=== PATIENT | female | born 1955 | race Two or more races ===

== ENCOUNTER 2023-08-31 12:30 | Inpatient (IN) | payer OTHER ==
[~2023-08-31] VITALS: Ht 175.3 cm; Wt 104.3 kg
[2023-08-31] MEDS ORDERED: INDAPAMIDE2.5 MG (14:59)
[2023-08-31] MEDS ORDERED: TIROSINT100 MCG (15:00)
[2023-08-31] MEDS ORDERED: AVAPRO75 MG (15:00)
[2023-08-31] MEDS ORDERED: ZETIA10 MG (15:01)
[2023-09-12] MEDS ORDERED: AZATHIOPRINE50 MG (14:23)
[2023-09-12] MEDS ORDERED: LISINOPRIL10 MG (14:23)
[2023-09-12] MEDS ORDERED: SIMVASTATIN20 MG (14:23)
[2023-09-12] MEDS ORDERED: OMEPRAZOLE20 MG (14:23)
[2023-09-12] MEDS ORDERED: VITAMIN D3250 MCG (14:23)
[2023-09-12] MEDS ORDERED: ROSUVASTATIN CA20 MG (14:23)
[2023-09-12] MEDS ORDERED: CEFAZOLIN SODIUM 1,000 MG VIAL ONE (14:42)
[2023-09-12] MEDS ORDERED: KETOROLAC TROMETHAMINE 60 MG VIAL IM ONE ×2 (17:42→18:00)
[2023-09-12] MEDS ORDERED: LIDOCAINE HCL 1%/Epi 20ML VIAL IJ ONE ×2 (17:42→18:00)
[2023-09-12] MEDS ORDERED: METHYLPREDNISOLONE ACETATE 80 MG/ML VIAL ONE (17:42)
[2023-09-12] MEDS ORDERED: POVIDONE-IODINE 3 EA MED..SWAB TOP ONE (17:42)
[2023-09-12] MEDS ORDERED: BUPIVACAINE HCL/PF 0.5% 30ML ML ONE (17:42)
[2023-09-12] MEDS ORDERED: TRANEXAMIC ACID 100MG/1ML (1000MG) AMPUL IV ONE ×3 (17:46→18:00)
[2023-09-12] MEDS ORDERED: CEFAZOLIN SODIUM 1,000 MG VIAL IV ONE (18:00)
[2023-09-12] MEDS ORDERED: METHYLPREDNISOLONE ACETATE 80 MG/ML VIAL IJ ONE (18:00)
[2023-09-12] MEDS ORDERED: BUPIVACAINE HCL 30 ML VIAL IV ONE (18:00)
[2023-09-12] MEDS ORDERED: ONDANSETRON HCL 2 MG/ML VIAL IV PRN (20:15)
[2023-09-12] MEDS ORDERED: SODIUM CHLORIDE 0.45 % 1,000 ML IV SCH (20:15)
[2023-09-12] MEDS ORDERED: MORPHINE SULFATE 2 MG/ML CARTRIDGE IV ONE (20:15)
[2023-09-12] MEDS ORDERED: MORPHINE SULFATE 4 MG/ML CARTRIDGE IV PRN (20:15)
[2023-09-12] MEDS ORDERED: GENTAMICIN SULFATE 40 MG/ML VIAL IV SCH (21:00)
[2023-09-12 23:08] LABS: HEMATOCRIT 35.5 % (36.0-45.00); HEMOGLOBIN 12.1 g/dL (12.0-15.00); RED BLOOD COUNT 3.92 M/uL (4.00-6.00)
[2023-09-13] MEDS ORDERED: CEFAZOLIN SODIUM 1,000 MG VIAL IV SCH
[2023-09-13] MEDS ORDERED: LEVOTHYROXINE SODIUM 100 MCG TABLET PO SCH (06:00)
[2023-09-13 06:48] LABS: HEMATOCRIT 32.7 % (36.0-45.00); HEMOGLOBIN 11.2 g/dL (12.0-15.00); MEAN CELL VOLUME 90.2 fL (80.00-100.00); MEAN CORPUSCULAR HEMOGLOBIN 30.8 pg (27.00-32.0); MEAN CORPUSCULAR HGB CONC 34.2 g/dl (32.0-36.0); PLATELET COUNT 185 K/uL (150-450); RED BLOOD COUNT 3.63 M/uL (4.00-6.00); RED CELL DISTRIBUTION WIDTH 14.3 % (11.5-14.5)
[2023-09-13] MEDS ORDERED: OxyCODONE HCL/APAP UD (PERCOCET) PO PRN (08:15)
[2023-09-13] MEDS ORDERED: OxyCODONE HCL ER 10MG TAB (OxyCONTIN) PO SCH (09:00)
[2023-09-13] MEDS ORDERED: BACITRACIN 28.35 GM OINT.TUBE TOP SCH (09:00)
[2023-09-13] MEDS ORDERED: INDAPAMIDE 2.5 MG TABLET PO SCH (09:00)
[2023-09-13] MEDS ORDERED: SENNA/DOCUSATE SODIUM 1 TAB TABLET PO SCH (09:00)
[2023-09-13] MEDS ORDERED: IRON FUM,PS/FOLIC/BCOMP,C NO.9 1 CAP CAPSULE PO SCH (09:00)
[2023-09-13] MEDS ORDERED: RIVAROXABAN 10 MG TAB PO SCH (09:00)
[2023-09-14 06:47] LABS: HEMATOCRIT 31.2 % (36.0-45.00); HEMOGLOBIN 10.6 g/dL (12.0-15.00); MEAN CELL VOLUME 90.2 fL (80.00-100.00); MEAN CORPUSCULAR HEMOGLOBIN 30.8 pg (27.00-32.0); MEAN CORPUSCULAR HGB CONC 34.1 g/dl (32.0-36.0); PLATELET COUNT 172 K/uL (150-450); RED BLOOD COUNT 3.46 M/uL (4.00-6.00); RED CELL DISTRIBUTION WIDTH 14.1 % (11.5-14.5)
[2023-09-14] MEDS ORDERED: XARELTO10 MG PO (08:02)
[2023-09-14] MEDS ORDERED: OXYC1TAB9 PO (08:02)
[2023-09-14] MEDS ORDERED: INTEGRA PLUS C1 EACH PO (08:02)
[2023-09-14] MEDS ORDERED: BACTRIM DS TAB1 EACH PO (08:02)
[2023-09-14] MEDS ORDERED: MORPHINE SULFATE 4 MG/ML VIAL IV ONE (17:15)
[2023-09-14] MEDS ORDERED: TRANEXAMIC ACID 100MG/1ML (1000MG) AMPUL IV ONE ×2 (17:15)
[2023-09-14] MEDS ORDERED: METHYLPREDNISOLONE ACETATE 80 MG/ML VIAL IJ ONE (17:15)
[2023-09-14] MEDS ORDERED: CEFAZOLIN SODIUM 1,000 MG VIAL IV ONE (17:15)
[2023-09-14] MEDS ORDERED: KETOROLAC TROMETHAMINE 60 MG VIAL IM ONE (17:15)
== END 2023-09-14 11:58 | DRG 470 ==
LOC: SURG 09-05 10:30 → O/R 09-12 06:51 → SURG 09-12 21:20
PROVIDERS: ADMIT Orthopaedic Surgery Sports Medicine; ATTEND Orthopaedic Surgery Sports Medicine
PROC: 0SRC0J9 Replacement of Right Knee Joint with Synthetic Substitute, Cemented, Open Approach (ICD-10-PCS; principal; 2023-09-12 17:30)
DX: M17.11 Unilateral primary osteoarthritis, right knee (principal); Z20.822 Contact with and (suspected) exposure to COVID-19